=== PATIENT | female | born 1960 | race Caucasian/White ===

== ENCOUNTER 2017-02-25 06:32 | Day surgery (SDC) | payer OTHER ==
[2017-02-24 09:53] VITALS: BMI 31.8
[~2017-02-25] VITALS: Ht 147.3 cm; Wt 70.0 kg
[2017-02-25] VITALS (15 sets, daily range): BP systolic 103–135; BP diastolic 64–80; PULSE 52–65; RESP 13–20; Ht 147.3 cm; Wt 70.0 kg
[2017-02-25] MEDS ORDERED: CEFAZOLIN 2 GM/50 ML (PMX) 50 ML IVPB SCH (07:00)
[2017-02-25] MEDS ORDERED: SOD CHLORIDE 0.9% 1,000 ML IV SCH (07:00)
[2017-02-25] MEDS ORDERED: MECL-77 PO (07:57)
[2017-02-25] MEDS ORDERED: EMPA25TA PO (07:57)
[2017-02-25] MEDS ORDERED: METO10TA96 PO (07:58)
[2017-02-25] MEDS ORDERED: OMEP40CA6 PO (07:58)
[2017-02-25] MEDS ORDERED: FLUT16SP17 NASAL (07:58)
[2017-02-25] MEDS ORDERED: ATOR40TA68 PO (07:59)
[2017-02-25] MEDS ORDERED: GABA300C16 PO (07:59)
[2017-02-25] MEDS ORDERED: LATA2.5D2 BOTH EYES (08:00)
[2017-02-25] MEDS ORDERED: GLIM1TAB2 PO (08:00)
[2017-02-25] MEDS ORDERED: AMIT10TA6 PO (08:01)
[2017-02-25] MEDS ORDERED: DULO30CA47 PO (08:02)
[2017-02-25] MEDS ORDERED: METF500T4 PO (08:03)
[2017-02-25] MEDS ORDERED: METF1000 PO (08:04)
[2017-02-25] MEDS ORDERED: MELO-110 PO (08:05)
[2017-02-25] MEDS ORDERED: METOCLOPRAMIDE 10 MG INJ IV PRN (08:30)
[2017-02-25] MEDS ORDERED: DIPHENHYDRAMINE 50 MG INJ IV PRN (08:30)
[2017-02-25] MEDS ORDERED: FENTAnyl 50 MCG/ML VIAL IV PRN ×2 (08:30)
[2017-02-25] MEDS ORDERED: ONDANSETRON 4 MG INJ IV PRN (08:30)
[2017-02-25] MEDS ORDERED: MEPERIDINE 25 MG INJ IV PRN (08:30)
[2017-02-25] MEDS ORDERED: HYDROmorphONE (0.2 MG/ML) 10ML SYG IV PRN ×3 (08:30)
[2017-02-25] MEDS ORDERED: BUPIVACAINE 0.25% (MPF) 30 ML INJ ONE (08:45)
--- NOTE | 2017-02-25 08:47 | RADRPT ---
PROCEDURE: Chest Radiograph. CLINICAL INDICATION: Preop TECHNIQUE: Single frontal chest radiograph. COMPARISON: None available FINDINGS: The cardiomediastinal silhouette is within normal limits. No infiltrate or effusion is seen. Th e bones are intact. IMPRESSION: 1. Unremarkable chest radiograph. RPTAT: KK .Brayan Brannon MD, MD Date Time Electronically viewed and signed by .Brayan Brannon MD, on 02/25/2017 08:46 .B/
[2017-02-25] MEDS ORDERED: CEFAZOLIN 1 GM INJ ONE (09:09)
[2017-02-25] MEDS ORDERED: PROPOFOL 20 ML ONE (09:09)
[2017-02-25] MEDS ORDERED: LIDOCAINE 2% (SDV) 5 ML INJ ONE (09:09)
[2017-02-25] MEDS ORDERED: LIDOCAINE 2% (MDV) 20 ML INJ ONE (09:12)
--- NOTE | 2017-02-25 09:25 | OPR ---
Date/Time of Note Date/Time of Note DATE: 02/25/17 TIME: 09:23 Operative Report Procedure Date: Feb 25, 2017 Preoperative Diagnosis right arm mass Postoperative Diagnosis same Operation Performed 1. excision of right arm mass 8 cm incision and 5 cm mass 2. localized adjacent tissue transfer with the use of skin flaps 16 sq cm defect 3. therapeutic injection of subcutaneous marcaine cpt code 17453 Surgeon: Adwoa JORDAN Specimens right arm mass Indications This is a 57-year-old female with a right arm mass. She required surgical excision. Procedure Description Patient is taken to the OR and prepped and draped in usual sterile fashion surgical timeout was performed IV antibiotics are given. Local anesthesia is infiltrated along the incision around the mass with a 25-gauge needle. Transverse incision is made with a 15 blade. Dissection cautery was carried onto the mass the mass was circumferentially excised. There is good hemostasis. Due to tissue defect localized adjacent tissue transfer with use of skin flaps was performed. Interrupted 3-0 Vicryl and skin roseanne were used for closure. Dry dressings were applied. Adwoa JORDAN Feb 25, 2017 09:25
[2017-02-25] MEDS ORDERED: HYDROCODONE/APAP (5/325) TAB PO ONE (09:30)
--- NOTE | 2017-02-25 21:06 | RADRPT ---
Vent Rate: 59 bpm RR Interval: 0 msec WI Interval: 160 msec QRS Duration: 72 msec QT Interval: 424 msec QTC Interval: 419 msec P-R-T Valera: 37 - 29 - 70 degrees Sinus bradycardia Cannot rule out Anterior infarct , age undetermined Abnormal ECG Electronically Signed By: Bebeto Coyne [id number]
== END 2017-02-25 11:35 | disposition home or self-care (01) ==
LOC: SDS 06:32
PROVIDERS: ATTEND Surgery
DX: D17.21 Benign lipomatous neoplasm of skin and subcutaneous tissue of right arm (principal); E11.9 Type 2 diabetes mellitus without complications; I10 Essential (primary) hypertension; E66.9 Obesity, unspecified; Z68.32 Body mass index [BMI] 32.0-32.9, adult
CPT/HCPCS: 14021; 71010; 82962; 88307; 93005; J0690; J3010; Z7512; Z7610

== ENCOUNTER 2017-07-26 11:58 | Day surgery (SDC) | payer OTHER ==
[~2017-07-26] VITALS: Ht 147.3 cm; Wt 68.1 kg
[~2017-07-26 11:58] MED LIST: AMIT10TA6 PO; ATOR40TA68 PO; DULO30CA47 PO; EMPA25TA PO; FLUT16SP17 NASAL; GABA300C16 PO; GLIM1TAB2 PO; LATA2.5D2 BOTH EYES; MECL-77 PO; MELO-210 PO; METF1000 PO; METO10TA96 PO; OMEP40CA6 PO
[2017-07-26 12:37] VITALS: Ht 147.3 cm; Wt 68.1 kg
[2017-07-26] MEDS ORDERED: SULI150T39 PO (13:04)
[2017-07-26] MEDS ORDERED: MISO100T PO (13:04)
[2017-07-26] MEDS ORDERED: ONDA4TAB95 PO (13:04)
[2017-07-26] MEDS ORDERED: PROPOFOL 20 ML ONE (14:09)
[2017-07-26] MEDS ORDERED: LIDOCAINE 2% (SDV) 5 ML INJ ONE (14:09)
[2017-07-26] MEDS ORDERED: MIDAZOLAM 1 MG/ML 2 ML INJ ONE (14:09)
--- NOTE | 2017-07-26 14:31 | OPPN ---
Date/Time of Note Date/Time of Note DATE: 07/26/17 TIME: 14:27 Proc Note GI Procedure Date 07/26/17 Indication: other (Change in bowel habits) Pre-procedure Diagnosis Change in bowel habits Post-procedure Diagnosis Impression: Mild diverticulosis left side of the colon. Otherwise normal colonic mucosa. Random biopsies right and left colon obtained to rule out microscopic, lymphocytic or collagenous colitis. Moderate-sized internal hemorrhoids Plan: Follow up as scheduled] High fiber diet Annual hemoccult stool testing [Review pathology] [Screening colonoscopy in 10 years] . Procedure Performed: Colonoscopy Surgeon NOHEMY SHEARER MD See signature line Range Conservationist none Anesthesia Type: MAC Anesthesiologist: NEYDA NIELSEN DO Tourniquet Time none EBL none Transfusion required none Biopsy 1: Right side of the colon Biopsy 2: Left side of the colon Grafts/Implants none Tubes/Drains none Complication(s) none Disposition: home Procedure Description After informed consent, with the patient/relatives understanding the procedure, its indications and potential risks and complications, including but not limited to: Allergic reaction, bleeding, perforation, infection, and after all pertinent questions were answered to the patient's satisfaction, the patient/ relatives signed the witnessed informed consent. Following this, premedication was administered slowly IV push under careful cardiovascular and respiratory monitoring with pulse OXIMETRY, automatic blood pressure, and surveillance system monitor. Once the sedative effect was achieved, the patient was placed in the left lateral decubitus position, digital rectal examination was performed. The colonoscope was then introduced and advanced under visual control throughout all segments of the colon including: the rectum, sigmoid, descending colon, splenic flexure, transverse colon, hepatic flexure, ascending colon and finally reaching the cecum which was clearly identified by transillumination, finger indentation and the ileocecal valve. Careful examination of the mucosa of the lower gastrointestinal tract both on insertion as well as withdrawal of the instrument disclosed the following findings: PREPARATION QUALITY: [Adequate], RECTAL EXAM: The anorectal area was visualized examined and digital rectal examination performed with the following findings: Small external hemorrhoids are present. Otherwise no evidence of perirectal disease, no masses. COLONIC MUCOSA: The mucosa of all segments of the colon was carefully examined and showed the following findings: There is mild diverticulosis left side of the colon. Random biopsies were obtained to rule out microscopic, lymphocytic or collagenous colitis. Moderate- sized internal hemorrhoids are present. Otherwise the examined mucosa appears within normal limits. There is no evidence of inflammatory changes, polyps or neoplasms, vascular malformation, or any other abnormality. The instrument was then withdrawn, the patient tolerated the procedure well and was transferred out of the Endoscopy Suite awake and in good condition to continue recovery under observation. Copies To: CC: NOHEMY SHEARER MD, MORDO MD Jul 26, 2017 14:31
--- NOTE | 2017-07-26 14:33 | OPPN ---
Date/Time of Note Date/Time of Note DATE: 07/26/17 TIME: 14:31 Proc Note GI Procedure Date 07/26/17 Indication: other (Dyspepsia) Pre-procedure Diagnosis Dyspepsia Post-procedure Diagnosis Impression: Moderate gastritis. Rule out H. pylori infection. Biopsies obtained Otherwise normal EGD. Plan: Continue PPI therapy Review pathology as soon as available Follow-up as previously scheduled . Procedure Performed: Endoscopy (With biopsies) Surgeon NOHEMY SHEARER MD See signature line Training Administrator none Anesthesia Type: MAC Anesthesiologist: NEYDA NIELSEN DO Tourniquet Time none EBL none Transfusion required none Biopsy 1: Gastric body and antrum Grafts/Implants none Tubes/Drains none Complication(s) none Disposition: home Procedure Description After informed consent, with the patient/relatives understanding the procedure, its indications, potential risks and complications, including but not limited to : allergic reaction, bleeding, perforation or infection, and after all pertinent questions were answered to the patients satisfaction, the patient/ relatives signed witnessed informed consent. Following this, premedication was administered slowly IV push under careful cardiovascular and respiratory monitoring with pulse oximetry, automatic blood pressure, and desktop support technician. Once the sedative effect was achieved the patient was place in the left lateral decubitus, the panendoscope was introduced and advanced under visual control. Careful examination of the upper gastrointestinal tract, both on insertion as well as withdrawal of the instrument disclosing the following findings: ESOPHAGUS: the mucosa of the entire esophagus was carefully examined and showed the following findings: the mucosa appears within normal limits. There is no evidence of esophagitis, varices, neoplasm, or stricture. No Hiatal Hernia identified. STOMACH: Upon entrance to the stomach air was insufflated, the gastric topete distended normally. The mucosa of the fundus, body and antrum of the stomach was carefully examined both head-on and on retroflexion, and showed the following findings: There is moderate erythema and edema the mucosa of the body and antrum the stomach. Biopsies were obtained to rule out H. pylori infection. Otherwise the mucosa appears within normal limits with no abnormalities. There is no evidence of ulcers or neoplasm. PYLORUS: The pylorus was carefully examined and showed the following findings: the pylorus appears patent and within normal limits, with no evidence of gastric outlet obstruction. DUODENUM: The duodenal mucosa was carefully examined in the duodenal bulb as well as the second portion of the duodenum and showed the following findings: the mucosa appears unremarkable with no evidence of duodenitis, ulcer or neoplasm. Copies To: CC: NOHEMY SHEARER MD, MORDO MD Jul 26, 2017 14:33
[2017-07-26 15:07] VITALS: BP 114/73; PULSE 56; RESP 18
== END 2017-07-26 16:04 | disposition home or self-care (01) ==
LOC: GIL 11:58
PROVIDERS: ATTEND Internal Medicine Gastroenterology
DX: R19.4 Change in bowel habit (principal); K29.70 Gastritis, unspecified, without bleeding; K57.90 Diverticulosis of intestine, part unspecified, without perforation or abscess without bleeding; K64.8 Other hemorrhoids; E11.9 Type 2 diabetes mellitus without complications
CPT/HCPCS: 82962; 88305; J2250